=== PATIENT | female | born 1945 | race Caucasian/White ===

== ENCOUNTER 2022-09-02 15:00 | Outpatient (RCR) | payer MEDICARE, SELFPAY | END 2022-09-03 08:23 | disposition home or self-care (01) | PROVIDERS: PCP Family Medicine; Visit Provider Family Medicine | DX: M25.561 Pain in right knee (principal); M79.644 Pain in right finger(s); Z51.89 Encounter for other specified aftercare | CPT/HCPCS: 97035; 97110; 97116; 97140; 97161; 97165; 97535; L3913 ==

== ENCOUNTER 2023-07-23 15:15 | Outpatient (RCR) | payer MEDICARE, SELFPAY | END 2023-10-21 09:18 | disposition home or self-care (01) | PROVIDERS: PCP Family Medicine; Visit Provider Orthopaedic Surgery | DX: M17.11 Unilateral primary osteoarthritis, right knee (principal); M25.561 Pain in right knee; Z51.89 Encounter for other specified aftercare | CPT/HCPCS: 97110; 97140; 97161 ==

== ENCOUNTER 2023-07-31 19:03 | Emergency (ER) | payer MEDICARE, SELFPAY ==
[2023-07-31 19:08] VITALS: BP 168/84; PULSE 76; RESP 16; TEMP 36.2; O2SAT 99; BMI 20.4
--- NOTE | 2023-07-31 19:35 | ED.GENADULT ---
HPI - General Adult General Chief complaint: Abdominal Pain Stated complaint: abdominal pain, high bp Time Seen by Provider: 07/31/23 19:05 Source: patient Mode of arrival: ambulatory Limitations: no limitations History of Present Illness HPI narrative: 77-year-old female presenting today with 2 concerns. 1. She had an episode of abdominal pain in the right upper quadrant that lasted a few hours and is now completely resolved. Patient does state that she has a history of gallstones and this has happened her in the past. She denies any fevers, chills, nausea or vomiting. Last time this occurred she stated that she talked to the surgeon who told her that she could wait for any further surgical management. 2. She is concerned about her blood pressure. States that her blood pressures generally around the 1 teens systolic and when she checked it at home today was in the 170s. She was in pain when this occurred. She denies headaches, blurry vision. She does not take any medication for high blood pressure as she generally has low blood pressures. She does take propanolol for tremor, she did take 10 mg today when her blood pressure was elevated. Related Data Home Medications Medication Instructions Recorded Confirmed alendronate 70 mg tablet 70 mg PO 07/31/23 propranolol 10 mg tablet 5 mg PO BID PRN 07/31/23 07/31/23 Allergies Allergy/AdvReac Type Severity Reaction Status Date / Time penicillin Allergy Uncoded 07/31/23 19:14 Review of Systems Status of ROS: Reports: 10 or more systems reviewed and unremarkable except as noted in History and below Exam Narrative: Exam Narrative: Well-nourished well-developed patient in no acute distress. Alert and oriented. Answers questions appropriately. Mood and affect are appropriate. Thoughts are goal oriented and rational. No tangential or magical thinking noted. Patient speaks in full sentences without needing to catch her breath. Patient is not in any discomfort. HEENT: Normocephalic atraumatic. Pupils are equally round reactive to light. Extraocular muscles are intact. Conjunctivae are moist without any icterus noted. Skin: Well perfused without any obvious rashes. Const: Vital Signs, click to edit/add: Vital Signs - 24 hr 07/31/23 19:08 Temperature 97.2 F L Pulse Rate [Right Pulse Oximeter] 76 Respiratory Rate 16 Blood Pressure [Ri ght Upper Arm] 168/84 H Pulse Oximetry 99 Oxygen Delivery Me thod Room Air Course Vital Signs Vital signs: Initial Vital Signs Temperature 97.2 F L 07/31/23 19:08 Temperature Source Temporal Artery Scan 07/31/23 19:08 Pulse Rate 76 07/31/23 19:08 Respiratory Rate 16 07/31/23 19:08 Blood Pressure 168/84 H 07/31/23 19:08 Blood Pressure Mean 112 H 07/31/23 19:08 Blood Pressure Position Sitting 07/31/23 19:08 Pulse Oximetry 99 07/31/23 19:08 Oxygen Delivery Method Room Air 07/31/23 19:08 Vital Signs Temperature 97.2 F L 07/31/23 19:08 Pulse Rate 76 07/31/23 19:08 Respiratory Rate 16 07/31/23 19:08 Blood Pressure 168/84 H 07/31/23 19:08 Pulse Oximetry 99 07/31/23 19:08 Oxygen Delivery Method Room Air 07/31/23 19:08 Temperature 97.2 F L 07/31/23 19:08 Pulse Rate 76 07/31/23 19:08 Respiratory Rate 16 07/31/23 19:08 Blood Pressure 168/84 H 07/31/23 19:08 Pulse Oximetry 99 07/31/23 19:08 Oxygen Delivery Method Room Air 07/31/23 19:08 Medical Decision Making MDM Narrative Medical decision making narrative: 77-year-old female with abdominal pain now resolved. History of gallstones. Recommend she follow up with surgeon once again to discuss surgical management. Elevated blood pressure: Continue to monitor at home. Would not recommend any changes to her management at this time. Patient is reassured. Recommend she follow up with her primary care provider. Discharge Plan Discharge Clinical Impression: Elevated blood pressure reading, Abdominal pain, Cholelithiasis Patient Disposition: Home, Self-Care Condition: Stable Additional Instructions: Recommend you periodically check your blood pressure at home, few times per week is sufficient. If blood pressure continues to be elevated, you should follow-up with your primary care provider. I also recommend that you follow-up with your general surgeon to discuss your abdominal discomfort and if any surgical management is warranted at this time. Prescriptions: No Action alendronate 70 mg tablet 70 mg PO propranolol 10 mg tablet 5 mg PO BID PRN Follow Up/Referrals: Jeri Bergman MD [Primary Care Provider] - Stand Alone Forms: MyHealth Info Instructions
[2023-07-31 19:37] LABS: Appearance Urine Clear (Clear); Bilirubin Urine Negative (Negative); Blood Urine Negative (Negative); Color Urine Yellow (Yellow); Glucose Urine Negative (Negative); Ketones Urine Negative (Negative); Leukocyte Esterase Urine Negative (Negative); Nitrite Urine Negative (Negative); Protein Urine Negative (Negative); Specific Gravity Urine 1.015 (1.000-1.030); Urobilinogen Urine 0.2 (0.2-1.0); pH Urine 7.5 (5.0-8.5)
[2023-07-31 19:46] LABS: RBC Urine 0-2 (0-2); WBC Urine 0-2 (0-5)
== END 2023-07-31 19:48 | disposition home or self-care (01) ==
PROVIDERS: Emergency Provider Family Medicine; PCP Family Medicine
DX: K80.20 Calculus of gallbladder without cholecystitis without obstruction (principal); R03.0 Elevated blood-pressure reading, without diagnosis of hypertension
CPT/HCPCS: 81001; 99283

== ENCOUNTER 2023-11-15 16:44 | Emergency (ER) | payer MEDICARE, SELFPAY ==
[2023-11-15 16:48] VITALS: BP 131/75; PULSE 72; RESP 16; TEMP 36.5; O2SAT 98; BMI 19.4
--- NOTE | 2023-11-15 17:09 | XR_ITS ---
Patient: TELLO RUANO Facility:?[facility] Patient ID:?[id number] Site Patient ID:?[id number]. Site :?1945 Study:?XRay-Extremity Left WRIST 3V-11/15/2023 5:18:00 PM Ordering Physician:SAVANNAH Final Report: INDICATION: Injury. TECHNIQUE: Three views left wrist. IMPRESSION: Impacted dorsally angulated fracture of the juxta-articular distal radial metaphysis. Slight ulnar and dorsal displacement of comminuted ulnar styloid fracture. Diffuse osteopenia. No definitive fracture lucency extending into the radiocarpal joint or slightly widened distal radioulnar joint. Carpal alignment is anatomic. H Dictated by Afshin Pearce MD @ 11/15/2023 5:41:09 PM Signed by:?Afshin Pearce MD @11/15/2023 5:41:09 PM (Electronic Signature)
--- NOTE | 2023-11-15 17:17 | ED_ITS ---
HPI - Fall General Chief Complaint: Fall/Minor Trauma Stated Complaint: Juan, L hand injury Time Seen by Provider: 11/15/23 17:02 History of Present Illness HPI Narrative: This 78-year-old female comes in with an injury to her left wrist that occurred prior to arrival. She was at a play and stepped away to the bathroom when she misstepped on a couple steps and fell onto her left outstretched hand. She has a deformity of her left wrist. She does not report any other injury. She st ates that she did bump her head slightly but has no headache and did not have any loss of consciousness. She is able to ambulate normally. Related Data Home Medications Medication Instructions Recorded Confirmed alendronate 70 mg tablet 70 mg PO 07/31/23 propranolol 10 mg tablet 5 mg PO BID PRN 07/31/23 07/31/23 Allergies Allergy/AdvReac Type Severity Reaction Status Date / Time Penicillins AdvReac Severe Anaphylaxis Verified 11/15/23 16:51 Review of Systems Status of ROS: Reports: 10 or more systems reviewed and unremarkable except as noted in History and below Narrative: Constitutional: No fevers, no weight gain or loss. Eyes: No discharge. No vision changes. HENT: No congestion, no sore throat, no ear pain. Cardiovascular: No chest pain, no palpitations. Respiratory: No shortness of breath, no wheezes, no cough. Gastrointestinal: No abdominal pain, no vomiting, no diarrhea. Genitourinary: No dysuria, no hematuria. Musculoskeletal: Left wrist injury as described above. Skin: No rashes, no pruritis. Neurological: No dizziness, weakness, sensory change, speech change. Endo/Heme/Allergies: No bruising or bleeding. No polydipsia. Pysch: no suicidality, no anxiety, no insomnia. All other systems reviewed and are negative. Exam Narrative: Exam Narrative: Constitutional: Well-developed, well-nourished, no acute distress. HEENT: Normocephalic, atraumatic. Neck: Normal range of motion. Nontender. Supple. Heart: Intact distal pulses. Lungs: No chest discomfort. No wheezes, rhonchi, or rales. Abdomen: Nontender. Back: Normal range of motion. Extremities: Left wrist has swelling with some deformity typical of fracture. Skin: Intact. No rash. Warm. No erythema or pallor. Neurologic: No altered sensation. No weakness. Alert and oriented. Psychiatric: No suicidality. No anxiety or depression. No insomnia. Nursing notes and vitals signs are reviewed. Const: Vital Signs, click to edit/add: Vital Signs - 24 hr 11/15/23 16:48 Temperature 97.7 F Pulse Rate [Right Pulse Oximeter] 72 Respiratory Rate 16 Blood Pressure [Ri ght Upper Arm] 131/75 Pulse Oximetry 98 Oxygen Delivery Me thod Room Air Course Vital Signs Vital signs: Initial Vital Signs Temperature 97.7 F 11/15/23 16:48 Temperature Source Temporal Artery Scan 11/15/23 16:48 Pulse Rate 72 11/15/23 16:48 Pulse Rhythm Regular 11/15/23 16:48 Pulse Strength 3+ Normal 11/15/23 16:48 Respiratory Rate 16 11/15/23 16:48 Blood Pressure 131/75 11/15/23 16:48 Blood Pressure Mean 93 11/15/23 16:48 Blood Pressure Position Sitting 11/15/23 16:48 Pulse Oximetry 98 11/15/23 16:48 Oxygen Delivery Method Room Air 11/15/23 16:48 Vital Signs Temperature 97.7 F 11/15/23 16:48 Pulse Rate 72 11/15/23 16:48 Respiratory Rate 16 11/15/23 16:48 Blood Pressure 131/75 11/15/23 16:48 Pulse Oximetry 98 11/15/23 16:48 Oxygen Delivery Method Room Air 11/15/23 16:48 Temperature 97.7 F 11/15/23 16:48 Pulse Rate 72 11/15/23 16:48 Respiratory Rate 16 11/15/23 16:48 Blood Pressure 131/75 11/15/23 16:48 Pulse Oximetry 98 11/15/23 16:48 Oxygen Delivery Method Room Air 11/15/23 16:48 MDM - Fall MDM Narrative Medical decision making narrative: This patient comes in with an injury to her left wrist with an obvious deformity. X-ray imaging does show a fracture of the distal radius and ulna with some angulation. The patient was agreeable to a hematoma block. Using 1% lidocaine without epinephrine I injected about 5 mL into the hematoma of the fracture. This brought great pain relief for her. I was able to move her fracture site without any pain. A sugar-tong splint was placed using Ortho Glass material. Repeat x-ray show improvement of alignment. The patient states that she does have some pain medicine that she can use at home if needed. I advised her to follow-up with orthopedic clinic for ongoing management. Imaging Data xr L Wrist: Radiologist's impression: Impacted dorsally angulated fracture of the juxta-articular distal radial metaphysis. Slight ulnar and dorsal displacement of comminuted ulnar styloid fracture. Diffuse osteopenia. No definitive fracture lucency extending into the radiocarpal joint or slightly widened distal radioulnar joint. Carpal alignment is anatomic. H Discharge Plan Discharge Clinical Impression: Fracture of wrist Patient Disposition: Home, Self-Care Condition: Improved Additional Instructions: Wear splint and sling. Follow-up with orthopedic clinic for ongoing management. Call [phone] for appointment. Return if worsening. Prescriptions: No Action alendronate 70 mg tablet 70 mg PO propranolol 10 mg tablet 5 mg PO BID PRN Follow Up/Referrals: Bree Sanders DO [Primary Care Provider] - Stand Alone Forms: Homecare [facility] Info Instructions
[2023-11-15] MEDS: LIDOCAINE 1 % PF 30 ML INJECTION (17:30)
--- NOTE | 2023-11-15 18:03 | XR_ITS ---
Patient: TELLO RUANO Facility:?[facility] Patient ID:?[id number] Site Patient ID:?[id number]. Site :?1945 Study:?XRay-Extremity Left WRIST 3V-11/15/2023 6:13:56 PM Ordering Physician:SAVANNAH Final Report: Indication: Post splinting Technique: Three views of the left wrist Comparison: Same day wrist radiographs Findings/impression : Overlying splint limits evaluation of the osseous structures and soft tissues. There is improved alignment of the distal radial and ulnar styloid process fractures, now in near anatomic alignment following splinting. Dictated by Eric Go MD @ 11/15/2023 6:36:43 PM Signed by:?Eric Go MD @11/15/2023 6:36:43 PM (Electronic Signature)
== END 2023-11-15 18:27 | disposition home or self-care (01) ==
PROVIDERS: Emergency Provider Emergency Medicine Emergency Medical Services; PCP Family Medicine
DX: S52.615A Nondisplaced fracture of left ulna styloid process, initial encounter for closed fracture (principal); W10.9XXA Fall (on) (from) unspecified stairs and steps, initial encounter
CPT/HCPCS: 25605; 73110; 99283; 99284; J2001

== ENCOUNTER 2023-11-19 08:29 | Day surgery (SDC) | payer MEDICARE, SELFPAY ==
[2023-11-19] VITALS (8 sets, daily range): BP systolic 105–156; BP diastolic 60–79; PULSE 58–586; RESP 14–16; TEMP 36.4–36.7; O2SAT 93–99; BMI 20.5
[2023-11-19] MEDS: LACTATED RINGERS 1000 ML 1,000 ML 100 ML IV (09:00)
[2023-11-19] MEDS: SODIUM CHLORIDE 0.9 % (FLUSH) 10 ML SYRINGE IVF (09:00)
[2023-11-19] MEDS: fentaNYL 100 MCG/2 ML inj IVP (10:40)
[2023-11-19] MEDS: MIDAZOLAM HCL 1 MG/ML inj IVP (10:40)
--- NOTE | 2023-11-19 10:45 | XR_ITS ---
Patient: TELLO RUANO Facility:?[facility] Patient ID:?[id number] Site Patient ID:?[id number]. Site :?1945 Study:?XRay-Extremity Left WRIST 2 VIEWS-11/19/2023 12:25:37 PM Ordering Physician:MARIE Final Report: INDICATION: Left wrist fracture ORIF TECHNIQUE: Distal left radius fracture ORIF performed by Dr. Sanchez. AP and lateral C-arm spot images were obtained. Fluoroscopy time was 41 seconds. COMPARISON: 11/15/2023 FINDINGS: C-arm fluoroscopy for distal left radius fracture ORIF. Fracture fragments in good alignment and hardware intact. IMPRESSION: C-arm fluoroscopy for distal left radius fracture ORIF. Dictated by Monroe Winters MD @ 11/20/2023 10:22:19 AM Signed by:?Monroe Winters MD @11/20/2023 10:22:19 AM (Electronic Signature)
--- NOTE | 2023-11-19 10:50 | SUR.PREOP ---
TIME?OUT:?1040 PT/RN/MDA?VERIFICATION?OF?SURGICAL?SITE,?PROCEDURE,?AND?CONSENT OBTAINED?PRIOR?TO?INVASIVE?PROCEDURE.
--- NOTE | 2023-11-19 11:18 | W.PM.NB ---
Nerve Block Nerve Block Time Seen by Provider: 10:45 Date Seen: 11/19/23 Type of block requested by surgeon for post-operative analgesia: axillary Side: left Time out performed: Yes Verification of patient name: Yes Verification of date of : Yes Site marking: site marked Name of person performing procedure: Romeo Continuous monitoring Was continuous monitoring of O2 sat, B/P, student financial services counselor, recorded every 15 minutes?: Yes Procedure Checklist: sterile prep, needles and gloves Ultrasound guided. Images saved: Yes Medications given in 5ml increments after negative aspiration: Ropivicaine %: 0.5 mL: 30 Needle gauge: 22 Patient tolerated procedure well: Yes Additional comments: Needle noted adjacent to nerve Block Charges Block Charge (with Pro Fee): Brachial Plexus Use of Ultrasound Machine for Block: Yes- US Guidance/pain block
[2023-11-19] MEDS: CEFAZOLIN 2 GM INJ IVP (11:24)
--- NOTE | 2023-11-19 12:11 | W.ANESCHARGE ---
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
--- NOTE | 2023-11-19 12:12 | PM.ORPRC ---
Procedure Note Date of procedure: 11/19/23 Procedure: PREOPERATIVE DIAGNOSIS: Angulated 3+ part intra-articular left upper extremity distal radius fracture POSTOPERATIVE DIAGNOSIS: Angulated 3+ part intra-articular left upper extremity distal radius fracture NAME OF OPERATION: Open reduction internal fixation SURGEON: Nishant Snachez MD UNDERCUTTER: PARVEEN Mathew ANESTHESIA: Supraclavicular block plus monitored anesthesia care ESTIMATED BLOOD LOSS: 0 mL COMPLICATIONS: None SPECIMENS: None DRAINS: None PREOPERATIVE ANTIBIOTICS: Ancef 1 g INDICATIONS: The patient is a 78-year-old who fell landing on their upper extremity sustaining the above injury. Given the amount of angulation, reduction and plate fixation were recommended. The risks, benefits and expected outcomes were discussed in detail. These included but were not limited to: Infection, bleeding, injury to blood vessel or nerve, venous thromboembolism. All questions were answered to their satisfaction. Use of an virtual assistant for advertisers was necessary throughout the case for patient positioning and safety, maintenance of the reduction, surgical site dressing and splint application. PROCEDURE: A supraclavicular block was placed by Anesthesia. The patient was placed supine on the operating room table. IV sedation was administered. The reduction was obtained with longitudinal traction and volar force on the distal fragment, held by the virtual assistant for advertisers. The image intensifier was used to confirm an excellent reduction. The extremity was prepped and draped in the usual sterile fashion. The limb was exsanguinated with the Tin bandage. The pneumatic tourniquet was inflated to 250 mm of mercury. A longitudinal incision was made over the flexor carpi radialis. Subcutaneous dissection was taken sharply through the FCR sheath. The FCR was retracted radially. Sharp dissection was carried through the floor of the FCR sheath. The flexor pollicis longus was retracted ulnarly. Sharp dissection was carried through the radial border of the pronator quadratus which was elevated ulnarly, exposing the fracture site. The virtual assistant for advertisers held retractors to expose the fracture. The volar cortex of the fracture is anatomically aligned. We placed a Synthes standard, 3 hole volar locking plate over the volar cortex. It was provisionally held with a K-wire x 2, while the virtual assistant for advertisers held the reduction. Its placement was confirmed with the image intensifier. We placed a cortical screw in the slot. We placed a locking screw in the shaft. We then filled the distal screw holes with smooth locking pegs using the image intensifier to confirm their extra-articular placement. Finally, a 2nd locking screw was placed in the shaft fragment. This construct was imaged in multiple views and was felt to be well placed with an anatomic reduction and well placed implants. The wound was irrigated normal saline. Subcutaneous tissues were reapproximated with a 2-0 Vicryl, skin with a running 3-0 Monocryl in a subcuticular fashion. Glue was used to seal the skin. A dry dressing and short-arm dorsal volar splint was applied. These steps were all completed by the virtual assistant for advertisers. The tourniquet was released, sponge and needle counts were correct x2. The patient tolerated the procedure well, there were no apparent complications. They were taken to the postanesthesia care unit in satisfactory condition. PLAN: The patient will be discharged home. They will work on elevation of the hand and active range of motion of the fingers. They will follow up next week in the office for a wound check with a PA, oblique, lateral and fossa lateral view of the wrist out of the splint prior to being seen in preparation for early active motion with a Velcro wrist brace.
--- NOTE | 2023-11-19 13:13 | W.ANESCHARGE ---
Anesthesia Charges Start Date/Time Anesthesia Start Date: 11/19/23 Anesthesia Start Time: 11:06 Stop Date/Time Anesthesia Stop Date: 11/19/23 Anesthesia Stop Time: 12:40 Summary Extremes of Age - Over 70 or under 1: MDA
== END 2023-11-19 14:02 | disposition home or self-care (01) ==
PROVIDERS: PCP Family Medicine; Visit Provider Orthopaedic Surgery
PROC: (CPT 25575; principal; 2023-11-19 10:45)
DX: S52.572A Other intraarticular fracture of lower end of left radius, initial encounter for closed fracture (principal); G89.18 Other acute postprocedural pain
CPT/HCPCS: 25609; 01810; 01830; 64415; 73110; 76000; 76942; 99100; A4580; C1713; J0690; J2250; J2704; J2795; J3010; J7120

== ENCOUNTER 2024-02-03 12:30 | Outpatient (RCR) | payer MEDICARE, SELFPAY ==
--- NOTE | 2023-11-27 14:31 | OT.OPOE ---
OT Outpatient Ortho Eval OT Outpatient Ortho Eval* Start: 11/26/23 18:07 Freq: Status: Active Protocol: Document 11/27/23 13:28 AMB (Rec: 11/27/23 14:31 AMB [id number]) E-signed By Olga Sheriff, OTR/L, CLT, HOSPICE EXECUTIVE DIRECTOR OT OP Ortho Eval Details Complexity Complexity Low Insurance Information Insurance Information Medicare B,UCARE Outpatient History/Precautions Current Condition/Medical Diagnosis Referring Provider Dr Sanchez Treatment Diagnosis L UE pain, swelling, weakness and limited AROM due to LUE DR genao with ORIF Date of Onset DOI: 11/15/23, DOS: 11/19/23 Medical Conditions Osteoporosis Other Conditions Pt states the only medication she takes is Fosamax for her osteoporosis. Pt does have slightly elevated BP but is not needing medications at this point. Pt was seen by radio script writer in this clinic in June of 2022 for RUE trigger thumb which resolved with conservative treatment. Medical/Functional History Medical History Reviewed Yes Prior Level of Function/Mobility Full, pain-free use of her LUE . Social History Employment Status Retired [employer] Walks a lot Ortho Subjective Subjective Subjective Pt states that on 12/15/23 while attending a play at the [place] [email or web address], she missed a step and fell onto her LUE breaking her left wrist. Pt state she had surgery to fix it on 11/19/23. Pt feels she is doing ok, she lives alone but states she is managing just fine. She is surprised that she really doesn't have a lot of pain. Rates her pain 0-4/10. Pt likes to walk, so she is still using her sling as she walked to the clinic and felt better with it on. Goniometric Comments Goniometric Comments Goniometric Comments 11/27/23 AROM of BUE is WNL throughout with the exception of the LUE forearm, wrist and hand. AROM of the LUE forearm , wrist and hand are as follows: Forearm: Pronation is 45 Supination is 50 Wrist: Flexion is 45 Extension is [address] is 15 AROM of the LUE hand: Composite fist is full Opposition is to tip of SF. OT Objective Data Hand Hand Dominance Right Observations/Posture/Limb Appearance Objective Observations 11/27/23 Incision is covered with surgical glue, incision is visible under glue, no redness, no drainage, no s/s of infection. Mild swelling is appreciated throughout the LUE hand and forearm, bruising is fading. OT Problems Problems Problems Decreased Strength,Decreased Range of Motion,Decreased Dexterity,Pain,Decreased Coordination,Lifting,Gripping, Pinching Other Problems Opening Containers,Dressing, Computer,Fasteners Patient Potential Good Assessment Assessment Assessment Pt is a very pleasant 78yo referred to OT for rehabilitation following LUE DR birgit with resultant pain, swelling, weakness and limited AROM of the LUE hand, wrist and forearm. These deficits impair pt's ability to participate in her hobby of sewing and makes it difficult for her to do any of her ADLs or IADLs that require use of BUE or use of her LUE. Pt will benefit from skilled OT intervention to address impairments and restore full, pain-free use of her LUE. Occupational Therapy Treatment Plan - OP Potential Rehabilitation Potential Good Set Goals Goals Set with Patient Yes Goals Goals 1. Pt will be independent and compliant with HEP in order to resume full, pain-free use of the involved UE. 3 weeks 2. Pt will demonstrate full, pain-free AROM of the involved UE in order to improve ability to grasp and hold. 6 weeks 3. Pt will demonstrate pain- free documentation nurse and pinch strength comparable to the uninvolved side in order to improve functional grasp, hold, reach, and lifting ability needed to complete self-care, leisure tasks, and work activities. 8 weeks. Target Date 02/27/24 Treatment Plan Treatment Plan Evaluation,Edema Control,Joint Mobilization,Manual Therapy, Splinting,Wound Care/Scar Management,Therapeutic Exercise,Therapeutic Activities,Self Care/Home Management,Safe Expert Training ,Education Expected Frequency 1-2x Week Expected Duration 8-10 Weeks Home Program Home Program Home Program Initiated Home Program Specifics Pt was provided with HEP for gentle AROM exs for fingers, wrist and forearm. She was also instructed in non- resisted muscle pumps for edema reduction. Following demo, pt is able to complete exs with minimal cues. Pt was provided with written instructions for home use as well. Recertification Information Recertification Information Initial Certification Date 11/27/23 Recertification Due Date 02/25/24 Reasons to Continue Skilled Therapy Initiated OT today to address pain, weakness and limited AROM in the LUE following DR genao with ORIF. Click To Default 'Per treatment plan' Per treatment plan Continued Plan of Care and Interventions Per treatment plan Provider Signature Shows Agreement With POC & Medical Necessity Physician Comment/Change Comment or Changes Physician NPI Number #
== END 2024-02-03 13:33 | disposition home or self-care (01) ==
PROVIDERS: PCP Family Medicine; Visit Provider Physician Assistant
DX: Z98.890 Other specified postprocedural states (principal); Z51.89 Encounter for other specified aftercare
CPT/HCPCS: 97110; 97140; 97165; X5282

== ENCOUNTER 2024-08-16 13:00 | Outpatient (RCR) | payer MEDICARE, SELFPAY | END 2024-10-24 16:03 | disposition home or self-care (01) | PROVIDERS: PCP Family Medicine; Visit Provider Orthopaedic Surgery | DX: Z96.651 Presence of right artificial knee joint (principal); M25.561 Pain in right knee; M25.661 Stiffness of right knee, not elsewhere classified; R53.1 Weakness; Z51.89 Encounter for other specified aftercare | CPT/HCPCS: 97110; 97112; 97116; 97140; 97161 ==

== ENCOUNTER 2024-09-20 13:45 | Outpatient (RCR) | payer MEDICARE, SELFPAY | END 2024-10-24 16:03 | disposition home or self-care (01) | PROVIDERS: PCP Family Medicine; Visit Provider Family Medicine | DX: M25.562 Pain in left knee (principal); Z74.09 Other reduced mobility; M62.81 Muscle weakness (generalized); Z51.89 Encounter for other specified aftercare | CPT/HCPCS: 97110; 97161 ==

== ENCOUNTER 2025-01-02 23:12 | Emergency (ER) | payer MEDICARE, SELFPAY ==
--- OUTSIDE RECORDS SUMMARY | 2025-01-02 23:15 | XMS_ITS | Clinical Summary ---
Author Organization [facility] Address [address] [place] [address] Care Team Providers Care Extension Service Specialist In Charge Name Role Phone Keith Donald DO Unavailable [phone] Bree Sanders DO Primary Care Provider [phone] Allergies Active Allergy Reactions Criticality Noted Date Comments Unlisted Allergen (Include Detail In Comments) Intolerance-Can't Take 01/25/2008 Anything with mold-blue cheese Penicillins 03/23/2007 anything with mold. Medications Minoxidil (ROGAINE EXTRA STRENGTH) 5 % topical solution Apply to scalp once every other day 1 Bottle 6 Active b complex vitamins (VITAMIN B COMPLEX) capsule Take 1 Capsule by mouth once daily. 0 1 Active magnesium oxide 500 mg cap Take 500 mg by mouth once daily. 2 Active cholecalciferol (Vitamin D) 1,000 unit tablet Take 1 Tablet (1,000 units) by mouth 2 times daily. 0 2 Active melatonin 1 mg tablet Take 1 Tablet (1 mg) by mouth at bedtime. 0 3 Active Coenzyme Q10 (Co Q-10) 10 mg cap Take 1 Capsule (10 mg) by mouth once daily. 4 Active docusate (COLACE) 100 mg capsuleIndicatio ns:Status post total right knee replacement Take 1 Capsule (100 mg) by mouth 2 times daily if needed for Constipation (Hold for loose stools). 100 Capsule 06/10/2024 8:50 AM CONTINGENTS SUPERVISOR 4 Active Pwtrj-4-AWS-EPA- Fish Oil (Fish OiL) 1,000 (120-180) mg cap Take 2 Capsules by mouth once daily. Active zinc gluconate (ZINC ORAL) Take 50 mg by mouth two times daily. Active POTASSIUM CHLORIDE ORAL Take 99 mg by mouth once daily. Active alendronate (FOSAMAX) 70 mg tabletIndication s:Age-related osteoporosis without current pathological fracture Take 1 Tablet (70 mg) by mouth once a week in the morning. Take on empty stomach with full glass of water. Do not lie down for 1 hr. 13 Tablet 2 4 Active estradioL (ESTRACE) 0.01% (0.1 mg/g) vaginal creamIndications :Urinary urgency,Atrophic vaginitis Insert 1 g into the vagina every Thursday, Thursday and Thursday. 42.5 g 3 5 Active benzonatate 100 mg capsuleIndicatio ns:Acute cough Take 1 Capsule (100 mg) by mouth 3 times daily if needed for Cough. 21 Capsule 5 Active clindamycin 300 mg capsuleIndicatio ns:S/P total knee arthroplasty, right 2 tablets one hour prior to cleaning/procedu re 2 Capsule 5 Active Active Problems Problem Noted Date Diagnosed Date Arthritis of right knee 05/01/2023 Chronic pain of right knee 05/01/2023 Tremor 02/09/2023 Primary osteoarthritis of both knees 04/09/2022 Hyperlipidemia 12/12/2020 Osteoporosis 08/19/2017 Overview (07/29/2023): DEXA 2018 - not interested in bisphosphonates due to dental issues 2023: initiated Fosamax (07/29/2023); repeat DEXA in 2025 Postmenopausal atrophic vaginitis 08/19/2017 Anxiety 10/17/2016 Grief 10/17/2016 Cataract 03/01/2013 Adult ADHD 07/14/2009 Encounters Date Type Department Care Team Description 12/01/2024 Telephone [facility] [address] [place] [id number] Monroe Ayala MD Questions 10/18/2024 12:55 PM CDT Office Visit [facility] [address] [facility] [place] [place] [address] Bree Sanders, DO Fever (X1 day ); Cough (X1 week - productive); Sinus Problem (x3-4 days) 10/18/2024 Travel 10/03/2024 12:55 PM CDT Office Visit [facility] [address] [place] [address] Bree Sanders, DO Medicare ANNUAL (subsequent) Visit (78 year old female); Follow Up (Bone density f/u ) 10/03/2024 Travel from Last 3 Months Immunizations Immunization Administration Dates Next Due COVID-19 vaccine (Moderna 100mcg/0.5mL) PF, MDV 11/04/2021 COVID-19 vaccine (sli.do-Bio NTech 30mcg/0.3mL) 12YO+ BIVALENT PF, MDV 04/09/2024 COVID-19 vaccine (Pfizer-Bio NTech 30mcg/0.3mL) PF, MDV 10/06/2020,09/15/2020 Influenza A (H1N1), Inactivated 08/07/2009 Influenza Virus, Unspecified 06/10/2017,05/31/20 17 Influenza, High-dose Inactivated 05/17/2024,100 08/2018,05/24/2018 Influenza, High-dose Quadriv alent Inactivated 08/05/2021 Influenza, IIV3 (Age >=3 years) 08/04/2012 Influenza, Inactivated AIIV4 (Age 65+ Years) Preserv Free 05/19/2023,05/29/2022 Influenza, Inactivated IIV3 (Age 65+ Years) Preserv Free 05/17/2024,04/17/2020 Pneumococcal Poly,23-Valent (Pneumovax) 10/24/2010,09/26/2010(Deferred: Patient Refused - will do after age 65),09/25/2010 Pneumococcal conj 13-Valent (Prevnar 13) 08/19/2017 RSV, Recombinant ADJ Reconst ituted (Arexvy 120MCG/0.5mL) 06/12/2023 Tdap 12/14/2020,09/25/2010 Zoster (Shingrix-RZV, recombinant) 02/18/2019, Zoster (Zostavax-ZVL, live) 09/25/2010 Family History Medical History Relation Name Comments Heart Disease Father rheumatic feve r caused. Cancer-breast Maternal Grandmother Cancer-breast Mother Heart Disease Mother Other Other niece with kelly nile onset diabetes Cancer-colon No Family History Cancer-ovarian No Family History Relation Name Status Comments Father rheumatic fever complications Maternal Grandmother Mother heart problems age 70 Other Social History Tobacco Use Types Packs/Day Years Used Date Smoking Tobacco: Never Smokeless Tobacco: Never Tobacco Cessation:Counseling Given: No Alcohol Use Standard Drinks/Week Comments Yes 0 (1 standard drink = 0.6 oz pur e alcohol) on occ PHQ-2 Answer Date Recorded PHQ-2 TOTAL SCORE 1 10/03/2024 Social Connections Answer Date Recorded Do you often feel lonely or isolated from those around you? 0 09/05/2024 Financial Resource Strain Answer Date R ecorded Difficulty of Paying Living Expenses 3 09/05/2024 Difficulty of Paying Living Expenses Not on file 09/05/2024 Food Insecurity Answer Date Recorded Do you worry your food will run out before you are able to buy more? 1 09/05/2024 Transportation Needs Answer Date Record ed Does lack of transportation keep you from medica l appointments? 1 09/05/2024 Does lack of transportation keep you from work, meetings or getting things that you need? 1 09/05/2024 Housing Stability Answer Date Recorded What is your housing situation today? 1 09/05/2024 Utilities Answer Date Recorded Do you have trouble paying f or utilities (for example, heat, electricity, water, phone)? 1 09/05/2024 Comments No Sex and Gender Information Value Date Recorded Sex Assigned at Female 03/04/2020 8:17 PM CDT Legal Sex Female 5:45 AM CONTINGENTS SUPERVISOR Gender Identity Female 03/04/2020 8:17 PM CDT Sexual Orientation Straight 03/04/2020 8: 17 PM CDT Obstetrics History Para Term AB IAB SAB Ectopic Multiple Livin g Live Births 2 2 2 Date Outcome GA Total Labor Labor/2nd/3rd Weight Sex Type Anes PTL Mary A1 A5 Name Clin Para Para Last Filed Vital Signs Vital Sign Reading Time Taken Comments Blood Pressure 120/79 10/18/2024 1:01 PM CDT Pulse 89 10/18/2024 1:01 PM CDT Temperature 37.2 C (98.9 F) 10/18/2024 1:01 PM CDT Respiratory Rate 14 07/14/2024 2:58 PM CONTINGENTS SUPERVISOR Oxygen Saturation 97% 10/18/2024 1:01 PM CDT Inhaled Oxygen Concentration - - Weight 51.2 kg (112 lb 12.8 oz) 10/18/2024 1:01 PM CDT Height 161.5 cm (5' 3.58) 10/03/2024 1:09 PM CD T Body Mass Index 19.62 10/03/2024 1:09 PM CDT Plan of Treatment Upcoming Encounters Date Type Department Care Team (Late st Contact Info) Description 02/10/2025 11:00 AM CDT Office Visit [facility] [address] [place] [address] Monroe Ayala MD [address] [address] Health Maintenance Due Date Last Done Comments COVID-19 vaccine series ( season) 2025 12/07/2024, 04/09/2024, 04/28/2023, Additional history exists BMI (ht and wt on same day) for age 18+ 10/03/2025 10/03/2024, 07/29/2023, 11/05/2022, Additional history exists Depression screening for age 12+ 10/03/2025 10/03/2024, 09/30/2024, 07/29/2023, Additional history exists Medicare Wellness for age 65+ 10/04/2025 10/03/2024, 07/29/2023, 04/09/2022, Additional history exists Tetanus booster 12/14/2030 12/14/2020, 09/25/2010 Pneumococcal series for age 50+ Completed 08/19/2017, 10/24/2010, 09/25/2010 Zoster (shingles) series for age 50+ Completed 02/18/2019, 11/09/2018, 09/25/2010 Hepatitis C screening for age 18-79 Completed 06/01/2019 Tdap Completed 12/14/2020, 09/25/2010 DEXA/DXA scan for age 65+ Completed 2021, 08/25/2017, 10/24/2010, Additional history exists RSV vaccine for adults or Completed 06/12/2023 Influenza Vaccine Completed 05/17/2024, , 05/19/2023, Additional history exists Hepatitis B series for 19+ Aged Out N o longer eligible based on patient's age to complete this topic Medical Devices Implanted Type Area Gasser Machine Operator Device Identifier Shelf Expiration Date Model / Serial / Lot Cmnt Bone Simplex Hv Us 1 Pack - [id number] Implanted:Qty: 2 on 06/09/2024 by Monroe Ayala MD at [facility] Right: Knee [employer] 12/24/2024 6194-1-001 / / [id number] Peg Fem Triathlon - [id number] Implanted:Qty: 1 on 06/09/2024 by Monroe Ayala MD at [facility] Right: Knee [employer] 04/14/2028 5575-X-000 / / [id number] Baseplate Tib Sz 4 Triathlon Pe - [id number] Implanted:Qty: 1 on 06/09/2024 by Monroe Ayala MD at [facility] Right: Knee [employer] 11/09/2028 [id number] / / [id number] Implnt Patellar [id number] Knee X3 Asymmetric Triathlon - [id number] Implanted:Qty: 1 on 06/09/2024 by Monroe Ayala MD at [facility] Right: Knee [employer] 02/07/2029 [id number]-G-[id number] -[id number] / / [id number] Fem Rt Sz 5 Triathlon Post Stbz Non Pors - [id number] Implanted:Qty: 1 on 06/09/2024 by Monroe Ayala MD at [facility] Right: Knee [employer] 04/05/2028 [id number] / / [id number] Procedures Procedure Name Priority Date/Time Associated Diagnosis Comments XR DXA BONE DENSITY 2 SITES AXIAL Routine 04/10/2022 1:45 PM CDT Osteoporosis, unspecified osteoporosis type, unspecified pathological fracture presence ANTI HCV Routine 06/01/2019 12:06 PM CONTINGENTS SUPERVISOR Need for hepatitis C screening test from Last 3 Months or Most Recently Relevant to Health Maintenance Results * (ABNORMAL) XR DXA BONE DENSITY 2 SITES AXIAL (04/10/2022 1:45 PM CDT) Anatomical Region Laterality Modality Spine, HIPS, HIPL, HIPR Other Impressions 04/14/2022 8:18 AM CDT Osteoporosis. RECOMMENDATIONS: The National Osteoporosis Foundation recommends pharmacologic treatment for patients with T-scores of -2.5 or less, patients with prior history of fragility fractures, or patients with 10-year probability of greater than 3% at hips or greater than 20% of suffering major osteoporotic fractures. Recommend continued optimization of calcium and vitamin D intake through dietary means and/or supplementation and regular exercise. Consider pharmacologic therapy for osteoporosis. Follow-up bone density reading in 2 years if therapy initiated to assess therapeutic efficacy. Marysol Harrison PA-C [facility] 04/14/2022 Narrative 04/14/2022 8:18 AM CDT For Patients: Results are automatically released to your [facility] account once available, in compliance with federal regulations. This means that you may see your results before your provider has had a chance to review them. Please allow 2-3 business days for your provider to comment on the results. XR DXA Bone Mineral Density (BMD) EXAM LOCATION: [facility] [address] [facility] [address] PATIENT NAME: Dee Dee Garcia DATE OF : 1945 EXAM DATE: 04/10/2022 REQUESTING PROVIDER: Jeri Bergman MD GENDER AT : female HEIGHT: 5' 3.7 (04/09/2022) WEIGHT: 118 lb 14.4 oz (04/09/2022) MENOPAUSAL STATUS: Postmenopausal RACE/ETHNICITY: White RISK FACTORS: Height Loss (2 inches or more), Weight < 127 lbs. and White Race CURRENT MEDICATION FOR BONE LOSS: NONE INDICATION: Follow-up of existing osteoporosis COMPARISON DATE(S): 2018 DXA scans are compared to prior studies for a patient only when the two (or more) studies were performed on the same scanner. It is not possible to compare data generated on one scanner to data from another because there are not standards in DXA equipment. This applies even if the two scanners are made by the same flake cutter operator. PROCEDURE: Dual-energy x-ray absorptiometry performed with routine technique. Reporting is completed in the form of a T-score. The T-score represents the standard deviation from peak bone mass based on young healthy adult. A Z-score is used for diagnosis in premenopausal women, and for men under the age of 50. FINDINGS: RESULT LUMBAR SPINE L1 - L2 BMD: 0.821 g/cm2 T-Score: - 2.9 Z-Score: - 0.7 Change from prior in 2018: Increase 7.5%. RESULTS FEMUR Left femoral neck BMD: 0.686 g/cm2 T-Score: - 2.5 Z-Score: - 0.3 Change from prior in 2018: Decrease 2.3%. Right femoral neck BMD: 0.672 g/cm2 T-Score: - 2.6 Z-Score: - 0.4 Change from prior in 2018: Increase 0.9%. Left hip BMD: 0.707 g/cm2 T-Score: - 2.4 Z-Score: - 0.3 Change from prior in 2018: Decrease 3.9%. Right hip BMD: 0.663 g/cm2 T-Score: - 2.7 Z-Score: - 0.7 Change from prior in 2018: Decrease 1.3%. WHO criteria: Normal: T-score at or above -1 SD Osteopenia: T-score between -1.1 and -2.4 SD Osteoporosis: T-score at or below -2.5 SD Jeri Bergman MD DEXA Final Result * ANTI HCV (06/01/2019 12:06 PM CONTINGENTS SUPERVISOR) Pathologist [facility] HEPATITIS C ANTIBODY Non-React rufus Non-React rufus 06/01/2019 10:11 PM CONTINGENTS SUPERVISOR [facility] Comment:Antibodies to HCV no t detected; does not exclude the possibility of exposure to HCV. Blood BLOOD SPECIMEN / Unknown Venipuncture / Unknown 06/01/2019 12:06 PM CONTINGENTS SUPERVISOR 06/01/2019 12:06 PM CONTINGENTS SUPERVISOR Jeri Bergman MD SEND OUTS Final Result [facility] [address] [place] [address], [place] from Last 3 Months or Most Recently Relevant to Health Maintenance Insurance [employer] MEDICARE ADVANTAGE MR HC [employer] MEDICARE PDGM Advance Directives Documents on File Type Date Recorded Patient Line Maintainer Expl anation Healthcare Directive 06/08/2024 024 * Full Code (Latest Code Status on File) Date Activated Date Inactivated Comments 06/13/2024 7:33 AM * Full Code Date Activated Date Inactivated Comments 06/09/2024 6:05 AM 06/09/2024 4:15 PM Question Answer Comments Code Status Discussion: Unable to Assess Preferences, Provider to review later Care Teams Extension Service Specialist In Charge Relationship Specialty Start Date End Date Bree Sanders DO [address] [place] [address] PCP - General Family Practice 09/11/23 Keith Donald DO [address] [facility] [address] [place] [address] Endocrinology 08/14/22
[2025-01-02 23:20] VITALS: BP 185/87; PULSE 74; RESP 16; TEMP 36.7; O2SAT 98; BMI 18.9
--- NOTE | 2025-01-02 23:29 | ED.BACK ---
HPI - Back Pain/Injury General Time Seen by Provider: 23:29 <Romelia Meadows MD - Last Filed: 01/03/25 00:35> Date Seen: 01/02/25 <Romelia Meadows MD - Last Filed: 01/03/25 00:35> Chief Complaint: Back Injury/Pain <Romelia Meadows MD - Last Filed: 01/03/25 00:35> Stated Complaint: back pain, right hand numbness <Romelia Meadows MD - Last Filed: 01/03/25 00:35> Time Seen by Provider: 01/02/25 23:29 <Romelia Meadows MD - Last Filed: 01/03/25 00:35> Source: patient, RN notes reviewed and old records reviewed <Romelia Meadows MD - Last Filed: 01/03/25 00:35> Mode of arrival: ambulatory <Romelia Meadows MD - Last Filed: 01/03/25 00:35> Limitations: no limitations <Romelia Meadows MD - Last Filed: 01/03/25 00:35> History of Present Illness HPI Narrative: Dee Dee is a very pleasant 79-year-old female generally healthy who comes to the emergency room for evaluation regarding shoulder and back pain. Patient notes that this evening after 0900 hours she had the sudden onset of discomfort under her right shoulder blade that was quite intense to about a 6/10. The pain did radiate down her flank. It was not associated with shortness of breath or vomiting. She had no anterior chest or abdominal pain. She notes that this lasted about a 2nd or 2 and then started to dissipate. It happened again and this caused her concern as this is very much unlike her. She notes that she heard that women sometimes have unusual symptoms with heart issues. She does endorse previous history of ?gallbladder attacks?. She notes that maybe the pattern seen to be similar to what she has experienced before but in the past her pain was always in her right flank. Dee Dee has not had any fever chills vomiting nausea dysuria hematuria history of kidney stones. She is pain-free at this time. Did not feel that walking in from the parking lot increased her discomfort. No recent neck pain. Did have a tingling feeling going into the right arm earlier while lying in bed but that has now dissipated. <Romelia Meadows MD - Last Filed: 01/03/25 00:35> Related Data Home Medications: Home Medications ?Medication ?Instructions ?Recorded ?Confirmed alendronate 70 mg tablet 70 mg PO .weekly 07/31/23 01/02/25 propranolol 10 mg tablet 5 mg PO BID PRN 07/31/23 02/10/24 <Romelia Meadows MD - Last Filed: 01/03/25 00:35> Allergies/Adverse Reactions: Allergies Allergy/AdvReac Type Severity Reaction Status Date / Time Penicillins AdvReac Severe Anaphylaxis Verified 01/02/25 23:23 <Romelia Meadows MD - Last Filed: 01/03/25 00:35> Review of Systems Status of ROS: Reports: 6 or more systems reviewed and unremarkable except as noted in History and below <Romelia Meadows MD - Last Filed: 01/03/25 00:35> [facility] Medical History: Medical History Acute right flank pain ?R10.9 - Unspecified abdominal pain (ICD-10) <Romelia Meadows MD - Last Filed: 01/03/25 00:35> Surgical History: Surgical History History of open reduction and internal fixation (ORIF) procedure (11/19/23) ?Z98.890 - Other specified postprocedural states (ICD-10) H/O hernia repair ?Z98.890 - Other specified postprocedural states (ICD-10) ?Z87.19 - Personal history of other diseases of the digestive system (ICD-10) <Romelia Meadows MD - Last Filed: 01/03/25 00:35> Family History: Family History Father Stroke <Romelia Meadows MD - Last Filed: 01/03/25 00:35> Social History: Social History Smoking Status: Never smoker Do you use any of these nicotine containing products: None Second hand tobacco smoke exposure: No How often do you have a drink containing alcohol: monthly or less Alcohol type: wine and hard liquor How many standard drinks containing alcohol do you have on a typical day: 1 or 2 How often do you have six or more drinks on one occasion: Never AUDIT-C Alcohol total score: 1 Non-prescribed substance use: denies use Caffeine: Yes Are you using contraception or practicing any form of control: No <Romelia Meadows MD - Last Filed: 01/03/25 00:35> Exam Narrative: Exam Narrative: Alert and oriented. Very well-spoken woman in no acute distress. Mentation and speech normal. Movement of neck rotation lateral movement without increasing discomfort. Palpation down spine without discomfort. Heart with regular rate and rhythm and lungs are clear. Abdomen soft nontender. Negative Askew sign. Lower extremities without edema. No calf tenderness. <Romelia Meadows MD - Last Filed: 01/03/25 00:35> Const: Vital Signs, click to edit/add: Vital Signs - 24 hr 01/02/25 23:20 Temperature 98.1 F Pulse Rate [Pulse Oximeter] 74 Respiratory Rate 16 Blood Pressure [Ri ght Upper Arm] 185/87 H Pulse Oximetry 98 Oxygen Delivery Me thod Room Air <Romelia Meadows MD - Last Filed: 01/03/25 00:35> Vital Signs, click to edit/add: Vital Signs - 24 hr 01/02/25 23:20 Temperature 98.1 F Pulse Rate [Pulse Oximeter] 74 Respiratory Rate 16 Blood Pressure [Ri ght Upper Arm] 185/87 H Pulse Oximetry 98 Oxygen Delivery Me thod Room Air <Chencho Valles DO - Last Filed: 01/03/25 00:53> Documenting provider has reviewed patient's vital signs: yes <Romelia Meadows MD - Last Filed: 01/03/25 00:35> Course Course ED Course: Differential diagnosis includes but is not limited to angina, pneumothorax, pneumonia, biliary colic, musculoskeletal pain, pleurisy. Will place IV and draw labs to include CBC, comprehensive panel, troponin or, CRP. Will also order chest x-ray and EKG. 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 This case will be signed out to my oncoming colleague Dr. Valles. <Romelia Meadows MD - Last Filed: 01/03/25 00:35> Vital Signs Vital signs: Initial Vital Signs Temperature 98.1 F 01/02/25 23:20 Temperature Source Temporal Artery Scan 01/02/25 23:20 Pulse Rate 74 01/02/25 23:20 Respiratory Rate 16 01/02/25 23:20 Blood Pressure 185/87 H 01/02/25 23:20 Blood Pressure Mean 119 H 01/02/25 23:20 Blood Pressure Position Sitting 01/02/25 23:20 Pulse Oximetry 98 01/02/25 23:20 Oxygen Delivery Method Room Air 01/02/25 23:20 Vital Signs Temperature 98.1 F 01/02/25 23:20 Pulse Rate 74 01/02/25 23:20 Respiratory Rate 16 01/02/25 23:20 Blood Pressure 185/87 H 01/02/25 23:20 Pulse Oximetry 98 01/02/25 23:20 Oxygen Delivery Method Room Air 01/02/25 23:20 Temperature 98.1 F 01/02/25 23:20 Pulse Rate 74 01/02/25 23:20 Respiratory Rate 16 01/02/25 23:20 Blood Pressure 185/87 H 01/02/25 23:20 Pulse Oximetry 98 01/02/25 23:20 Oxygen Delivery Method Room Air 01/02/25 23:20 <Romelia Meadows MD - Last Filed: 01/03/25 00:35> Initial Vital Signs Temperature 98.1 F 01/02/25 23:20 Temperature Source Temporal Artery Scan 01/02/25 23:20 Pulse Rate 74 01/02/25 23:20 Respiratory Rate 16 01/02/25 23:20 Blood Pressure 185/87 H 01/02/25 23:20 Blood Pressure Mean 119 H 01/02/25 23:20 Blood Pressure Position Sitting 01/02/25 23:20 Pulse Oximetry 98 01/02/25 23:20 Oxygen Delivery Method Room Air 01/02/25 23:20 Vital Signs Temperature 98.1 F 01/02/25 23:20 Pulse Rate 74 01/02/25 23:20 Respiratory Rate 16 01/02/25 23:20 Blood Pressure 185/87 H 01/02/25 23:20 Pulse Oximetry 98 01/02/25 23:20 Oxygen Delivery Method Room Air 01/02/25 23:20 Temperature 98.1 F 01/02/25 23:20 Pulse Rate 74 01/02/25 23:20 Respiratory Rate 16 01/02/25 23:20 Blood Pressure 185/87 H 01/02/25 23:20 Pulse Oximetry 98 01/02/25 23:20 Oxygen Delivery Method Room Air 01/02/25 23:20 <Chencho Valles DO - Last Filed: 01/03/25 00:53> MDM - Back Pain/Injury MDM Narrative Medical decision making narrative: Patient is a 79-year-old female signed out to me pending rest for lab work and x-ray. She presents for right-sided back pain. Lab work is returning no concerning abnormalities. EKG shows no concerning abnormalities. Troponin within normal limits. Urinalysis shows no signs of UTI. CBC shows no concerning findings. CMP shows a slightly elevated AST but otherwise nothing concerning. I do not believe this mild elevation in her AST needs further workup here in the emergency department. I did inform her of this finding. I also informed her of the chest x-ray findings showing a possible diaphragmatic hernia on the left side but again I do not believe this is related to her right-sided back pain and I believe she can follow-up outpatient for dedicated CT scan. She is agreeable to this plan. <Chencho Valles DO - Last Filed: 01/03/25 00:53> Medical Records Attestation: I reviewed the patient's medical records. <Romelia Meadows MD - Last Filed: 01/03/25 00:35> Lab Data Labs: Lab Results 01/02/25 01/03/25 Range/Units 23:45 00:00 WBC 5.30 (4.50-11.00) K/uL RBC 4.19 (4.00-5.20) m/uL Hgb 13.0 (12.0-16.0) gm/dL Hct 38.8 (33.0-51.0) % MCV 93 (80-100) fL MCH 31 (26-34) pg MCHC 34 (32-36) gm/dL RDW Coeff of Branden 13.8 (11.5-15.5) % Plt Count 217 (140-440) K/uL Neut % (Auto) 63.6 (42.0-72.0) % Lymph % (Auto) 22.6 (20-44) % [place] % (Auto) 10.6 (0.0-11.0) % Eos % (Auto) 2.8 (0.0-7.0) % Baso % (Auto) 0.2 (0.0-3.0) % Neut # (Auto) 3.37 (1.7-7.0) K/uL Lymph # (Auto) 1.20 (0.90-2.90) K/uL [place] # (Auto) 0.60 (0.00-0.90) K/UL Eos # (Auto) 0.15 (0.00-0.50) K/uL Baso # (Auto) 0.01 (0.00-0.30) K/uL Abs Immat Gran (auto) 0.01 (0.00-0.30) K/uL Imm/Tot Granulo (auto) 0.2 % Sodium 138 (135-149) mmol/L Potassium 4.0 (3.6-5.1) mmol/L Chloride 101 (96-114) mmol/L Carbon Dioxide 30 (20-32) mmol/L Anion Gap 7 (7-15) mEq/L BUN 19 (7-30) mg/dL Creatinine 0.6 (0.5-1.5) mg/dL Estimated Creat Clear 35.93 Estimated GFR 91 ml/min Glucose 84 (60-115) mg/dL Calcium 9.7 (8.4-10.6) mg/dL Total Bilirubin 0.6 (0.1-1.5) mg/dL AST 52 H (12-35) U/L ALT 26 (4-35) U/L Alkaline Phosphatase 69 (40-150) U/L C-Reactive Protein < 0.5 L (0.5-1.0) mg/dL Total Protein 7.6 (6.0-8.3) g/dL Albumin 4.5 (3.3-5.0) g/dL Urine Color Yellow (Yellow) Urine Appearance Clear (Clear) Urine pH 7.0 (5.0-8.5) Ur Specific [place] 1.010 (1.000-1.030) Urine Protein Negative (Negative) Urine Glucose (UA) Negative (Negative) Urine Ketones Negative (Negative) Urine Blood Negative (Negative) Urine Nitrite Negative (Negative) Urine Bilirubin Negative (Negative) Urine Urobilinogen 0.2 (0.2-1.0) Ur Leukocyte Esterase Negative (Negative) Urine RBC 0-2 (0-2) Urine WBC 0-2 (0-5) Ur Squamous Epith Cells Few (None-Few) Urine Bacteria None (None) POC Troponin I 0.00 L (0.01-0.04) ng/ml <Romelia Meadows MD - Last Filed: 01/03/25 00:35> Lab Results 01/02/25 01/03/25 Range/Units 23:45 00:00 WBC 5.30 (4.50-11.00) K/uL RBC 4.19 (4.00-5.20) m/uL Hgb 13.0 (12.0-16.0) gm/dL Hct 38.8 (33.0-51.0) % MCV 93 (80-100) fL MCH 31 (26-34) pg MCHC 34 (32-36) gm/dL RDW Coeff of [place] 13.8 (11.5-15.5) % Plt Count 217 (140-440) K/uL Neut % (Auto) 63.6 (42.0-72.0) % Lymph % (Auto) 22.6 (20-44) % [place] % (Auto) 10.6 (0.0-11.0) % Eos % (Auto) 2.8 (0.0-7.0) % Baso % (Auto) 0.2 (0.0-3.0) % Neut # (Auto) 3.37 (1.7-7.0) K/uL Lymph # (Auto) 1.20 (0.90-2.90) K/uL [place] # (Auto) 0.60 (0.00-0.90) K/UL Eos # (Auto) 0.15 (0.00-0.50) K/uL Baso # (Auto) 0.01 (0.00-0.30) K/uL Abs Immat Gran (auto) 0.01 (0.00-0.30) K/uL Imm/Tot Granulo (auto) 0.2 % Sodium 138 (135-149) mmol/L Potassium 4.0 (3.6-5.1) mmol/L Chloride 101 (96-114) mmol/L Carbon Dioxide 30 (20-32) mmol/L Anion Gap 7 (7-15) mEq/L BUN 19 (7-30) mg/dL Creatinine 0.6 (0.5-1.5) mg/dL Estimated Creat Clear 35.93 Estimated GFR 91 ml/min Glucose 84 (60-115) mg/dL Calcium 9.7 (8.4-10.6) mg/dL Total Bilirubin 0.6 (0.1-1.5) mg/dL AST 52 H (12-35) U/L ALT 26 (4-35) U/L Alkaline Phosphatase 69 (40-150) U/L C-Reactive Protein < 0.5 L (0.5-1.0) mg/dL Total Protein 7.6 (6.0-8.3) g/dL Albumin 4.5 (3.3-5.0) g/dL Urine Color Yellow (Yellow) Urine Appearance Clear (Clear) Urine pH 7.0 (5.0-8.5) Ur Specific [place] 1.010 (1.000-1.030) Urine Protein Negative (Negative) Urine Glucose (UA) Negative (Negative) Urine Ketones Negative (Negative) Urine Blood Negative (Negative) Urine Nitrite Negative (Negative) Urine Bilirubin Negative (Negative) Urine Urobilinogen 0.2 (0.2-1.0) Ur Leukocyte Esterase Negative (Negative) Urine RBC 0-2 (0-2) Urine WBC 0-2 (0-5) Ur Squamous Epith Cells Few (None-Few) Urine Bacteria None (None) POC Troponin I 0.00 L (0.01-0.04) ng/ml <Chencho Valles DO - Last Filed: 01/03/25 00:53> ECG Data Attestation: I personally reviewed and interpreted this ECG as follows: <Romelia Meadows MD - Last Filed: 01/03/25 00:35> ECG interpretation date: 01/03/25 <Romelia Meadows MD - Last Filed: 01/03/25 00:35> Interpretation: EKG by my read shows sinus rhythm at a rate of 67. Isolated flattening of the T-wave in lead 1. Otherwise no acute ST or T-wave changes. Normal QT and WI intervals. <Romelia Meadows MD - Last Filed: 01/03/25 00:35> Discharge Plan Discharge Clinical Impression: Acute right-sided thoracic back pain <Romelia Meadows MD - Last Filed: 01/03/25 00:35> Patient Disposition: Home, Self-Care <Romelia Meadows MD - Last Filed: 01/03/25 00:35> Condition: Stable <Romelia Meadows MD - Last Filed: 01/03/25 00:35> Instructions: Thoracic Pain (ED) <Romelia Meadows MD - Last Filed: 01/03/25 00:35> Additional Instructions: This back pain is likely a muscle strain. I do recommend taking Tylenol and ibuprofen for your pain. If symptoms worsen or develops any new or concerning symptoms return for re-evaluation. He did have a very mildly elevated AST. I do not believe this needs emergent follow-up but do recommend following up with her primary care provider for that and the possible diaphragmatic hernia seen on your x-ray. They may want to do a dedicated chest CT. <Romelia Meadows MD - Last Filed: 01/03/25 00:35> Prescriptions: No Action alendronate 70 mg tablet 70 mg PO .weekly propranolol 10 mg tablet 5 mg PO BID PRN <Romelia Meadows MD - Last Filed: 01/03/25 00:35> Follow Up/Referrals: Bree Sanders DO [Primary Care Provider, Family Practice] <Romelia Meadows MD - Last Filed: 01/03/25 00:35> Stand Alone Forms: MyHealth Info Instructions <Romelia Meadows MD - Last Filed: 01/03/25 00:35>
[2025-01-02 23:54] LABS: Appearance Urine Clear (Clear); Bilirubin Urine Negative (Negative); Blood Urine Negative (Negative); Color Urine Yellow (Yellow); Glucose Urine Negative (Negative); Ketones Urine Negative (Negative); Leukocyte Esterase Urine Negative (Negative); Nitrite Urine Negative (Negative); Protein Urine Negative (Negative); Urobilinogen Urine 0.2 (0.2-1.0)
[2025-01-03 00:01] LABS: RBC Urine 0-2 (0-2); Squamous Epithelial Cell Urine Few (None-Few); WBC Urine 0-2 (0-5)
--- NOTE | 2025-01-03 00:09 | CRLHL7_ITS ---
For Patients: As a result of the Century Cures Act, medical imaging exams and procedure reports are released immediately into your electronic medical record. You may view this report before your referring provider. If you have questions, please contact your health care provider. INDICATION: Upper back chest pain TECHNIQUE: Chest radiograph 1 view COMPARISON: None FINDINGS: Mediastinum: The mediastinum is normal in appearance. The heart silhouette is normal in size and morphology. Lung: Both lungs are unremarkable in appearance. No sign of pleural effusion seen. No pneumothorax is identified. Bone and Soft tissue: Mild levoscoliosis of the lumbar spine is seen. There is a hemispheric low-density along the posterior medial left hemithorax measuring nearly 6 cm. IMPRESSION: 1. There is a hemispheric low-density along the posterior medial left hemithorax measuring nearly 6 cm. This may represent a diaphragmatic hernia and can be confirmed with CT. Dictated by Jason Estrada MD @ 01/03/2025 12:24:48 AM Dictated by: Jason Estrada MD @ 01/03/2025 00:24:52 (Electronically Signed)
[2025-01-03 00:10] LABS: Basophils Absolute Auto 0.01 K/uL (0.00-0.30); Basophils Percent Auto 0.2 % (0.0-3.0); Eosinophils Absolute Auto 0.15 K/uL (0.00-0.50); Eosinophils Percent Auto 2.8 % (0.0-7.0); Hematocrit 38.8 % (33.0-51.0); Immature Granulocytes Abs Auto 0.01 K/uL (0.00-0.30); Immature Granulocytes Pct Auto 0.2 %; Lymphocytes Percent Auto 22.6 % (20-44); Mean Corpuscular HGB Conc 34 gm/dL (32-36); Mean Corpuscular Hemoglobin 31 pg (26-34); Mean Corpuscular Volume 93 fL (80-100); Monocytes Percent Auto 10.6 % (0.0-11.0); Neutrophils Absolute Auto 3.37 K/uL (1.7-7.0); Neutrophils Percent Auto 63.6 % (42.0-72.0); Platelet Count* 217 K/uL (140-440); RDW Coefficient of Variation % 13.8 % (11.5-15.5); Red Blood Count 4.19 m/uL (4.00-5.20)
[2025-01-03 00:14] LABS: Slide Review Reflex No
[2025-01-03 00:27] LABS: Albumin* 4.5 g/dL (3.3-5.0); Chloride* 101 mmol/L (96-114); Sodium* 138 mmol/L (135-149)
[2025-01-03 00:30] LABS: Alanine Aminotransferase* 26 U/L (4-35); Aspartate Amino Transferase* 52 U/L (12-35); Blood Urea Nitrogen* 19 mg/dL (7-30); Creatinine* 0.6 mg/dL (0.5-1.5); Est. Creatinine Clearance* 35.93; Estimated Glomerular Filt Rate 91 ml/min
[2025-01-03 00:31] LABS: Alkaline Phosphatase* 69 U/L (40-150); Anion Gap 7 mEq/L (7-15); Bilirubin Total* 0.6 mg/dL (0.1-1.5); Calcium* 9.7 mg/dL (8.4-10.6); Carbon Dioxide* 30 mmol/L (20-32); Glucose* 84 mg/dL (60-115); Total Protein* 7.6 g/dL (6.0-8.3)
[2025-01-03 00:35] LABS: C Reactive Protein* < 0.5 mg/dL (0.5-1.0)
== END 2025-01-03 01:00 | disposition home or self-care (01) ==
PROVIDERS: Family Medicine; Emergency Provider Student in an Organized Health Care Education/Training Program; PCP Family Medicine
DX: M54.6 Pain in thoracic spine (principal)
CPT/HCPCS: 36415; 71045; 80053; 81001; 84484; 85025; 86140; 93005; 99284; 99285

== ENCOUNTER 2025-03-06 06:16 | Day surgery (SDC) | payer MEDICARE, SELFPAY ==
[2025-03-06] VITALS (15 sets, daily range): BP systolic 140–178; BP diastolic 66–87; PULSE 54–72; RESP 14–16; TEMP 36.2–36.7; O2SAT 91–100; BMI 20.5
[2025-03-06] MEDS: LACTATED RINGERS 1000 ML 1,000 ML 100 ML IV (06:25)
[2025-03-06] MEDS: SODIUM CHLORIDE 0.9 % (FLUSH) 10 ML SYRINGE IVF (07:24)
[2025-03-06] MEDS: ACETAMINOPHEN 325 MG TABLET 650 MG PO (07:31)
--- NOTE | 2025-03-06 07:31 | PM.GSPRC ---
Operative Note Date of procedure: 03/06/25 Pre-op diagnosis: Biliary colic Post-op diagnosis: Same Type of Procedure: Laparoscopic cholecystectomy Indications: The patient is a 79-year-old female who has a history of right flank pain for the past several years. This was provoked with eating. She was found to have gallstones. She initially tried to manage this expectantly, however her symptoms became somewhat more frequent and because of this, after discussion of risks and benefits she elected to proceed with cholecystectomy. Procedure Description: After discussing the risks and benefits of the procedure, the patient signed informed consent.? The operative site was marked and the patient was brought to the operating room and placed on the operating table in supine position.? Care was taken to pad the patient's pressure points.?? The patient was then intubated by anesthesia.?? The operative site was then prepped and draped in the usual sterile fashion.? A time-out was then performed. Entrance to the abdomen was gained via Pope technique below the umbilicus. The patient's prior umbilical incision was incised and dissection was taken down bluntly to the fascia. This was grasped with 2 Saira clamps and divided. The peritoneum was entered. The abdomen was then insufflated and briefly surveyed. There were some wispy omental adhesions to the upper abdomen. The patient's prior right femoral hernia repair appeared intact. I 1st placed 5 mm ports in the left upper quadrant and right upper quadrant under direct vision. I then took down the omental adhesions inferior to the liver. I then placed an additional 5 mm right-sided abdominal port under direct vision. The patient was then placed in reverse Trendelenburg position with the right side up. The gallbladder fundus was grasped and retracted cephalad. The infundibulum was grasped. A combination of hook cautery and blunt dissection was used to carefully dissect out the cystic duct and artery until they could clearly be seen entering the gallbladder without any intervening structures. The gallbladder was dissected off the cystic plate to achieve the critical view. Once this was achieved the cystic duct and artery were each clipped with 2 clips proximally and 1 clip distally on the specimen side and transected with the scissors. The gallbladder was then taken off of the liver bed and removed from the abdomen using an Endo-Catch bag. The gallbladder bed was surveyed for hemostasis which appeared excellent. The ports were removed and the abdomen desufflated. The umbilical port fascia was closed with 0 Vicryl. The skin was closed with absorbable subcuticular suture. Sterile dressings were applied. Instrument sponge and needle counts were correct at the end of the case. The patient was then woken and transferred to the PACU in stable condition. ? The patient tolerated the procedure well. Findings: Wispy omental adhesions noted in the upper abdomen. Anesthesia: GETA Surgeon: Chelsi Flores MD Estimated blood loss (mL): 5 Specimen: Gallbladder Condition: stable Disposition: PACU
--- NOTE | 2025-03-06 07:31 | W.PM.H&PU ---
History & Physical Update History & Physical Update H&P Reviewed and patient assessed: No changes noted
[2025-03-06] MEDS: LACTATED RINGERS 1000 ML 1,000 ML 75 ML IV (07:35)
[2025-03-06] MEDS: CLINDAMYCIN 900 MG/50 ML-D5W IVPB (07:39)
[2025-03-06] MEDS: BUPIVACAINE 0.25% 30 ML 20 ML INJECTION (07:47)
--- NOTE | 2025-03-06 07:57 | SUR.OPER ---
PATIENT QUESTIONS ANSWERED SATISFACTORILY PREOPERATIVELY. PATIENT BROUGHT TO OR #4 PER CART. Patient positioned supine on OR #4 bed. The perioperative team supported arms bilaterally on arm boards. Final approval of positioning by surgeon.
--- NOTE | 2025-03-06 08:30 | P.ANES_ITS ---
Anesthesia Charges Start Date/Time Anesthesia Start Date: 03/06/25 Anesthesia Start Time: 07:25 Stop Date/Time Anesthesia Stop Date: 03/06/25 Anesthesia Stop Time: 08:32 Summary Extremes of Age - Over 70 or under 1: LOCK STITCH CHANNELER Coding CPT Codes CPT Codes: ANESTH SURG UPPER ABDOMEN - 54372 ([id number]) P2 - PATIENT W/MILD SYST DISEASE, QX - LOCK STITCH CHANNELER SVC W/ MD MED DIRECTION, QK - NICKEL OPERATOR 2-4 CNCRNT ANES PROC Additional Codes: Summary - Extremes of Age - Over 70 or under 1: LOCK STITCH CHANNELER ([id number])
--- NOTE | 2025-03-06 08:30 | W.ANESCHARGE ---
Anesthesia Charges Start Date/Time Anesthesia Start Date: 03/06/25 Anesthesia Start Time: 07:25 Stop Date/Time Anesthesia Stop Date: 03/06/25 Anesthesia Stop Time: 08:32 Summary Extremes of Age - Over 70 or under 1: LUMBER CUTTER Coding CPT Codes CPT Codes: ANESTH SURG UPPER ABDOMEN - 54545 ([id number]) P2 - PATIENT W/MILD SYST DISEASE, QX - LUMBER CUTTER SVC W/ MD MED DIRECTION, QK - DRY KILN WORKER 2-4 CNCRNT ANES PROC Additional Codes: Summary - Extremes of Age - Over 70 or under 1: LUMBER CUTTER ([id number])
--- NOTE | 2025-03-06 08:36 | P.ANES_ITS ---
Anesthesia Charges Start Date/Time Anesthesia Start Date: 03/06/25 Anesthesia Start Time: 07:25 Stop Date/Time Anesthesia Stop Date: 03/06/25 Anesthesia Stop Time: 08:32 Summary Extremes of Age - Over 70 or under 1: MDA Coding CPT Codes CPT Codes: ANESTH SURG UPPER ABDOMEN - 21023 ([id number]) P2 - PATIENT W/MILD SYST DISEASE, QK - ADON 2-4 CNCRNT ANES PROC, QX - FLAME ANNEALING MACHINE OPERATOR SVC W/ MD MED DIRECTION Additional Codes: Summary - Extremes of Age - Over 70 or under 1: MDA ([id number])
--- NOTE | 2025-03-06 08:36 | W.ANESCHARGE ---
Anesthesia Charges Start Date/Time Anesthesia Start Date: 03/06/25 Anesthesia Start Time: 07:25 Stop Date/Time Anesthesia Stop Date: 03/06/25 Anesthesia Stop Time: 08:32 Summary Extremes of Age - Over 70 or under 1: MDA Coding CPT Codes CPT Codes: ANESTH SURG UPPER ABDOMEN - 39664 ([id number]) P2 - PATIENT W/MILD SYST DISEASE, QK - INFORMATION ASSURANCE 2-4 CNCRNT ANES PROC, QX - REEL BLADE BENDER FURNACE TENDER SVC W/ MD MED DIRECTION Additional Codes: Summary - Extremes of Age - Over 70 or under 1: MDA ([id number])
== END 2025-03-06 11:30 | disposition home or self-care (01) ==
PROVIDERS: PCP Family Medicine; Visit Provider Surgery
PROC: 0FT44ZZ Resection of Gallbladder, Percutaneous Endoscopic Approach (ICD-10-PCS; CPT 47562; principal; 2025-03-06 07:30)
DX: K80.20 Calculus of gallbladder without cholecystitis without obstruction (principal)
CPT/HCPCS: 47562; 00790; 88304; 99100; A9270; J0330; J0665; J0736; J1100; J1171; J2405; J2704; J2710; J3010; J3490; J7120

== ENCOUNTER 2025-06-04 06:34 | Emergency (ER) | payer MEDICARE, SELFPAY ==
--- OUTSIDE RECORDS SUMMARY | 2025-06-04 06:37 | XMS_ITS | Clinical Summary ---
Author Organization [facility] Address [address] [place] [address] Care Team Providers Care Service Electrician Name Role Phone Keith Donald DO Unavailable [phone] Bree Sanders DO Primary Care Provider [phone] Allergies Active Allergy Reactions Criticality Noted Date [...] loose stools). 100 Capsule 06/10/2024 8:50 AM STRAPPING MACHINE OPERATOR Active Dkuci-0-MHM-EPA- Fish Oil (Fish OiL) 1,000 (120-180) mg cap Take 2 Capsules by mouth once daily. Active zinc gluconate (ZINC ORAL) Take 50 mg by mouth two times daily. Active POTASSIUM CHLORIDE ORAL Take 99 mg by mouth once daily. Active psyllium (METAMUCIL) 0.4 gram capsule Take 1 Capsule by mouth once daily. 5 Active estradioL (ESTRACE) 0.01% (0.1 mg/g) vaginal creamIndications :Urinary urgency,Atrophic vaginitis Insert 1 g into the vagina every Thursday, Thursday and Thursday. 42.5 g 4 5 Active alendronate (FOSAMAX) 70 mg tabletIndication s:Age-related osteoporosis without current pathological fracture TAKE 1 TABLET (70 MG) BY MOUTH ONCE A WEEK IN THE MORNING. TAKE ON EMPTY STOMACH WITH FULL GLASS OF WATER. DO NOT LIE DOWN FOR 1 HR. 13 Tablet 2 5 Active Active Problems Problem Noted Date Diagnosed Date S/P total knee arthroplasty, right 02/10/2025 Arthritis of right knee 05/01/2023 Chronic pain of right knee 05/01/2023 Tremor 02/09/2023 Primary osteoarthritis of both knees 04/09/2022 Hyperlipidemia 12/12/2020 Osteoporosis 08/19/2017 Overview (07/29/2023): DEXA 2017 - not interested in bisphosphonates due to dental issues 2023: initiated Fosamax (07/29/2023); repeat DEXA in 2025 Postmenopausal atrophic vaginitis 08/19/2017 Anxiety 10/17/2016 Grief 10/17/2016 Cataract 03/01/2013 Adult ADHD 07/14/2009 Encounters Date Type Department Care Team Description 05/29/2025 8:05 AM STRAPPING MACHINE OPERATOR Office Visit [facility] [address] [place] [address] Bree Sanders, DO Preoperative Exam (DOS: 06/07/2025 /[facility] /RT EYE CATARACT /KENZIE RAY /FAX NUMBER:[phone] /) 05/29/2025 Travel 03/21/2025 1:15 PM CDT Office Visit [facility] [address] [facility] [address] Chelsi Flores MD Post-op (Laparoscopic cholecystectomy 03/06/25) 03/21/2025 Travel 03/20/2025 Telephone [facility] [address] [place] [address] Chelsi Flores MD Post-op (S/p Laparoscopic cholecystectomy 03/06/25) 03/06/2025 8:00 AM CDT Office Visit [facility] at [facility] [address] [facility] [place] [address] Chelsi Flores MD 03/06/2025 Orders Only [facility] Scanner 1 scan: (1-Ord) [facility], LAPAROSCOPIC CHOLECYSTECTOMY, 03/06/2025 03/06/2025 Lab Requisition [facility] [phone] Chelsi Flores MD 03/06/2025 Travel 03/04/2025 Refill [facility] [address] [place] [address] Bree Sanders DO Refill Request (Alendronate) from Last 3 Months Immunizations Immunization Administration Dates Next Due COVID-19 vaccine (Moderna 100mcg/0.5mL) PF, MDV 11/04/2021 COVID-19 vaccine (Pfizer-Bio NTech 30mcg/0.3mL) 12YO+ BIVALENT PF, MDV 04/09/2024 COVID-19 vaccine (Pfizer-Bio NTech 30mcg/0.3mL) PF, MDV 10/06/2020,09/15/2020 Influenza A (H1N1), Inactivated 08/07/2009 Influenza Virus, Unspecified 06/10/2017,05/31/20 17 Influenza, High-dose Inactivated 05/17/2024,10/0 08/2018,05/24/2018 Influenza, High-dose Quadriv alent Inactivated 08/05/2021 Influenza, IIV3 (Age >=3 years) 08/04/2012 Influenza, Inactivated AIIV4 (Age 65+ Years) Preserv Free 05/19/2023,05/29/2022 Influenza, Inactivated IIV3 (Age 65+ Years) Preserv Free 05/10/2025,05/17/2024,04/17/2020 Pneumococcal Poly,23-Valent (Pneumovax) 10/24/2010,09/26/2010(Deferred: Patient Refused - [...] PHQ-2 Answer Date Recorded PHQ-2 TOTAL SCORE 0 02/22/2025 Social Connections Answer Date Recorded Do you [...] PM CDT Legal Sex Female 5:45 AM STRAPPING MACHINE OPERATOR Gender Identity Female 03/04/2020 8:17 PM CDT Sexual Orientation Straight 03/04/2020 8: 17 PM CDT Obstetrics History Para Term AB IAB SAB Ectopic Multiple Livin g Live Births 2 2 2 Date Outcome GA Total Labor Labor/2nd/3rd Weight Sex Type Anes PTL Mary A1 A5 Name Clin Para Para Last Filed Vital Signs Vital Sign Reading Time Taken Comments Blood Pressure 125/67 05/29/2025 8:13 AM STRAPPING MACHINE OPERATOR Pulse 86 05/29/2025 8:13 AM STRAPPING MACHINE OPERATOR Temperature 37.2 C (98.9 F) 10/18/2024 1:01 PM CDT Respiratory Rate 14 07/14/2024 2:58 PM STRAPPING MACHINE OPERATOR Oxygen Saturation 99% 05/29/2025 8:13 AM STRAPPING MACHINE OPERATOR Inhaled Oxygen Concentration - - Weight 52.1 kg (114 lb 12.8 oz) 05/29/2025 8:13 AM STRAPPING MACHINE OPERATOR Height 161.2 cm (5' 3.47) 05/29/2025 8:13 AM CS T Body Mass Index 20.04 05/29/2025 8:13 AM STRAPPING MACHINE OPERATOR Plan of Treatment Health Maintenance Due Date Last Done Comments Medicare Wellness for age 65+ 10/04/2025 10/03/2024, 07/29/2023, 04/09/2022, Additional history exists Depression screening for age 12+ 02/22/2026 02/22/2025, 10/03/2024, 09/30/2024, Additional history exists BMI (ht and wt on same day) for age 18+ 05/29/2026 05/29/2025, 02/22/2025, 10/03/2024, Additional history exists Tetanus booster 12/14/2030 12/14/2020, 09/25/2010 Pneumococcal series for age 50+ Completed 08/19/2017, 10/24/2010, 09/25/2010 Zoster (shingles) series for age 50+ Completed 02/18/2019, 11/09/2018, 09/25/2010 Hepatitis C screening for age 18-79 Completed 06/01/2019 DEXA/DXA scan for age 65+ Completed 2021, 08/25/2017, 10/24/2010, Additional history exists RSV vaccine for adults or Completed 06/12/2023 Influenza Vaccine Completed 05/10/2025, , 05/17/2024, Additional history exists Hepatitis B series for 19+ Aged Out N o longer eligible based on patient's age to complete this topic Medical Devices Implanted Type Area Senior Wind Turbine Technician Device Identifier Shelf Expiration Date Model / Serial / Lot Cmnt Bone Simplex Hv Us 1 Pack - [id number] Implanted:Qty: 2 on 06/09/2024 by Monroe Ayala MD at [facility] Right: Knee [employer] 12/24/2024 6194-1-001 / / [id number] Peg Fem Triathlon - [id number] Implanted:Qty: 1 on 06/09/2024 by Monroe Ayala MD at [facility] Right: Knee [employer] 04/14/2028 5575-X-000 / / [id number] Baseplate Tib Sz 4 Triathlon Pe - [id number] Implanted:Qty: 1 on 06/09/2024 by Monroe Ayala MD at [facility] Right: Knee [employer] 11/09/2028 5521-B-400 / / [id number] Implnt Patellar [id number] Knee X3 Asymmetric Triathlon - [id number] Implanted:Qty: 1 on 06/09/2024 by Monroe Ayala MD at [facility] Right: Knee [employer] 02/07/2029 5551-G-320 -[id number] / / [id number] Fem Rt Sz 5 Triathlon Post Stbz Non Pors - [id number] Implanted:Qty: 1 on 06/09/2024 by Monroe Ayala MD at [facility] Right: Knee [employer] 04/05/2028 [id number] / / [id number] Procedures Procedure Name Priority Date/Time Associated Diagnosis Comments LAB TRACKING EVENT Routine 03/06/2025 8: 08 AM CDT PATH TISSUE EXAM Routine 03/06/2025 8:08 AM CDT SCAN-OPERATIVE/PRO CEDURE REPORT 03/06/2025 12:00 AM CDT XR DXA BONE DENSITY 2 SITES AXIAL Routine 04/10/2022 1:45 PM CDT Osteoporosis, unspecified osteoporosis type, unspecified pathological fracture presence ANTI HCV Routine 06/01/2019 12:06 PM STRAPPING MACHINE OPERATOR Need for hepatitis C screening test from Last 3 Months or Most Recently Relevant to Health Maintenance Results * LAB TRACKING EVENT (03/06/2025 8:08 AM CDT) Other (Other) Client Collect / Unknown 03/06/2025 8:08 AM CDT 03/06/2025 3:35 PM CDT us Chelsi Flores MD LAB BILL ONLY Final Re sult [facility] [address] [place] [address], * PATH TISSUE EXAM (03/06/2025 8:08 AM CDT) Case Report Pathology Report Case: [id number] Authorizing Provider: Chelsi Flores MD Collected: 03/06/2025 0808 Ordering Location: [facility] Received: 03/06/2025 1702 Pathologist: Jaime Ledbetter MD Specimen: Gallbladder 03/07/2025 5:32 PM CDT [facility] Final Diagnosis A) GALLBLADDER, LAPAROSCOPIC CHOLECYSTECTOMY: 1. Chronic cholecystitis 2. Cholelithiasis 3. Negative for dysplasia and malignancy 03/07/2025 5:32 PM CDT [facility] at 1732 CDT Clinical Information Ms. Garcia is a 79 y.o. who presents with a preoperative diagnosis of biliary colic. 03/07/2025 5:32 PM CDT [facility] Gross Description A) Received in formalin, labeled with the patient's name and gallbladder, is a 7.4 x 3.6 x 3.1 cm intact gallbladder. There are multiple black gallstones identified. There are no mucosal lesions identified. The average wall thickness is 0.2 cm. There is no abnormal wall thickening identified. No cystic duct lymph node is identified. Feed Management Advisor sections are submitted in one cassette. VRS 03/06/2025 03/07/2025 5:32 PM CDT [facility] Microscopic Description The final diagnosis is based on microscopic examination of appropriate sections of all specimens. 03/07/2025 5:32 PM CDT [facility] Additional Information Interpreted at [facility] - [address] [place] [address] 03/07/2025 5:32 PM CDT [facility] Other SPECIMEN FROM GALLBLADDER / Unknown 03/06/2025 8:08 AM CDT 03/06/2025 5:02 PM CDT Chelsi Flores MD PATHOLOGY/CYTOLOGY Final Result Performing Organization Address City/State/[facility] Co de Phone Number [facility] [address] [place] [address], * SCAN-OPERATIVE/PROCEDURE REPORT (03/06/2025 12:00 AM CDT) us Scanner OTHER Final Result * (ABNORMAL) XR DXA BONE DENSITY 2 [...] to assess therapeutic efficacy. Marysol Harrison PA-C [facility] 04/14/2022 Narrative 04/14/2022 8:18 AM CDT For Patients: Results are automatically released to your [facility]) account once available, in compliance with federal regulations. This means that you may see your results before your provider has had a chance to review them. Please allow 2-3 business days for your provider to comment on the results. XR DXA Bone Mineral Density (BMD) EXAM LOCATION: [address] [address] PATIENT NAME: Dee Dee Garcia DATE OF [...] two scanners are made by the same plastic welder. PROCEDURE: Dual-energy x-ray absorptiometry performed with routine [...] Result * ANTI HCV (06/01/2019 12:06 PM STRAPPING MACHINE OPERATOR) Pathologist [facility] HEPATITIS C ANTIBODY Non-React rufus Non-React rufus 06/01/2019 10:11 PM STRAPPING MACHINE OPERATOR [facility] Comment:Antibodies to HCV no t detected; does not exclude the possibility of exposure to HCV. Blood BLOOD SPECIMEN / Unknown Venipuncture / Unknown 06/01/2019 12:06 PM STRAPPING MACHINE OPERATOR 06/01/2019 12:06 PM STRAPPING MACHINE OPERATOR Jeri Bergman MD SEND OUTS Final Result [facility] [address] [place] [address], from Last 3 Months or Most Recently Relevant to Health Maintenance Insurance [facility] MEDICARE ADVANTAGE MR HC UCARE MEDICARE PDGM Advance Directives Documents on File Type Date Recorded Patient Feed Management Advisor Expl anation Healthcare Directive 06/08/2024 024 * Full Code (Latest Code Status on File) Date Activated Date Inactivated Comments 06/13/2024 7:33 AM * Full Code Date Activated Date Inactivated Comments 06/09/2024 6:05 AM 06/09/2024 4:15 PM Question Answer Comments Code Status Discussion: Unable to Assess Preferences, Provider to review later Care Teams Service Electrician Relationship Specialty Start Date End Date Bree Sanders DO [address] [place] [address] PCP - General Family Practice 09/11/23 Keith Donald DO [address] [place] [address] Endocrinology 08/14/22
[2025-06-04 06:39] VITALS: BP 158/79; PULSE 75; RESP 16; TEMP 36.4; O2SAT 98; BMI 19.5
--- NOTE | 2025-06-04 06:57 | ED_ITS ---
HPI - General Adult General Chief complaint: Overdose Stated complaint: accidentally took 3 vicodin instead of ibuprofen Time Seen by Provider: 06/04/25 06:37 Source: patient Mode of arrival: ambulatory Limitations: no limitations History of Present Illness HPI narrative: 79-year-old female presents to the emergency department 2-1/2 hours after she accidentally ingested 3 hydrocodone tablets. She does occasionally use 1 of these at a time for which she believes is post cholecystectomy syndrome type pain. This is her prescription that she has from her own prescribing provider. She had symptoms overnight and got up to take which she thought was 3 ibuprofen and realize that she took 3 hydrocodone. She woke about an hour and a half later feeling a little off. She says that she felt shaky and just a little funny. Those symptoms have now resolved. She is not experiencing any vision changes, stroke-like symptoms, neurological changes or imbalance. There has been no nausea or vomiting. She called the triage line and they advised her to be seen in emergency department. Wonders about what to do now, post ingestion. Denies intentionality Medications reviewed, allergy to penicillin noted. ROS otherwise negative further generalized, GI, respiratory, cardiac, neurological changes. Related Data Home Medications ?Medication ?Instructions ?Recorded ?Confirmed alendronate 70 mg tablet 70 mg PO .weekly 07/31/23 cholecalciferol (vitamin D3) 25 DAILY 03/02/25 mcg (1,000 unit) tablet docusate sodium 100 mg capsule mg PO 03/02/25 magnesium oxide 400 mg (241.3 mg mg DAILY 03/02/25 magnesium) tablet Previous Rx's ?Medication ?Instructions ?Recorded hydrocodone 5 mg-acetaminophen 325 1 tab PO Q6H PRN Pa in #15 tabs 03/06/25 mg tablet Allergies Allergy/AdvReac Type Severity Reaction Status Date / Time Penicillins AdvReac Severe Anaphylaxis Verified 03/06/25 06:34 [facility] Medical History Chronic pain of right knee ?M25.561 - Pain in right knee (ICD-10) ?G89.29 - Other chronic pain (ICD-10) Tremor ?R25.1 - Tremor, unspecified (ICD-10) Hyperlipidemia ?E78.5 - Hyperlipidemia, unspecified (ICD-10) Osteoporosis ?M81.0 - Age-related osteoporosis without current pathological fracture (ICD- 10) Grief ?F43.21 - Adjustment disorder with depressed mood (ICD-10) Cataract ?H26.9 - Unspecified cataract (ICD-10) Adult ADHD ?F90.9 - Attention-deficit hyperactivity disorder, unspecified type (ICD-10) Acute right flank pain ?R10.9 - Unspecified abdominal pain (ICD-10) Surgical History S/P total knee arthroplasty ?Z96.659 - Presence of unspecified artificial knee joint (ICD-10) History of open reduction and internal fixation (ORIF) procedure (11/19/23) ?Z98.890 - Other specified postprocedural states (ICD-10) H/O hernia repair ?Z98.890 - Other specified postprocedural states (ICD-10) ?Z87.19 - Personal history of other diseases of the digestive system (ICD-10) Family History Father Stroke Social History Smoking Status: Never smoker Do you use any of these nicotine containing products: None Second hand tobacco smoke exposure: No How often do you have a drink containing alcohol: monthly or less Alcohol type: wine and hard liquor How many standard drinks containing alcohol do you have on a typical day: 1 or 2 How often do you have six or more drinks on one occasion: Never AUDIT-C Alcohol total score: 1 Non-prescribed substance use: denies use Caffeine: Yes Are you using contraception or practicing any form of control: No Exam Const: Vital Signs, click to edit/add: Vital Signs - 24 hr 06/04/25 06:39 Temperature 97.6 F Pulse Rate [Pulse Oximeter] 75 Respiratory Rate 16 Blood Pressure [Ri ght Upper Arm] 158/79 H Pulse Oximetry 98 Oxygen Delivery Me thod Room Air Documenting provider has reviewed patient's vital signs: yes Common normals: no apparent distress and alert General appearance: cooperative, comfortable and well kempt HENMT: Common normals: head/scalp atraumatic Head and scalp: atraumatic Face and sinus: normal facial exam Eye: Common normals: conjunctivae normal General eye: normal appearance of both eyes Conjunctiva: conjunctiva(e) normal Other: Normal gaze and visual tracking Resp: Common normals: normal respiratory effort and no use of accessory muscles Effort & inspection: able to speak in complete sentences Neuro: Common normals: moves all extremities Sensorium/orientation: alert Speech: speech normal Gait (neuro): normal gait (Observed ambulating into exam room) Psych: Appearance: well kempt Attitude: engaged Activity/motor behavior: appropriate eye contact Attention/concentration: attention grossly intact Memory/cognition: memory grossly intact Insight: insight good Judgement: judgment good Skin: Common normals: no rashes or lesions noted General skin exam: no rashes or lesions noted Course Course ED Course: 39-year-old female with accidental overdose. 2-1/2 hours post ingestion, is now well past peak. No signs of respiratory suppression or dangerous sequelae. I do think this was completely accidental, not demonstrating any intention of self-harm. Patient counseled on medications safety, story narcotic medications and other potentially dangerous substances out of common reach. It is okay for her to use ibuprofen if she still has discomfort. Would discourage any further Tylenol for the next 8 hours. She would be cleared to drive in 4-6 hours. She is having mild side effects, not unexpected and the should resolve in about 4-6 more hours as well. Medically cleared for discharge. No additional workup recommended at this time Vital Signs Vital signs: Initial Vital Signs Temperature 97.6 F 06/04/25 06:39 Temperature Source Temporal Artery Scan 06/04/25 06:39 Pulse Rate 75 06/04/25 06:39 Respiratory Rate 16 06/04/25 06:39 Blood Pressure 158/79 H 06/04/25 06:39 Blood Pressure Mean 105 06/04/25 06:39 Blood Pressure Position Sitting 06/04/25 06:39 Pulse Oximetry 98 06/04/25 06:39 Oxygen Delivery Method Room Air 06/04/25 06:39 Vital Signs Temperature 97.6 F 06/04/25 06:39 Pulse Rate 75 06/04/25 06:39 Respiratory Rate 16 06/04/25 06:39 Blood Pressure 158/79 H 06/04/25 06:39 Pulse Oximetry 98 06/04/25 06:39 Oxygen Delivery Method Room Air 06/04/25 06:39 Temperature 97.6 F 06/04/25 06:39 Pulse Rate 75 06/04/25 06:39 Respiratory Rate 16 06/04/25 06:39 Blood Pressure 158/79 H 06/04/25 06:39 Pulse Oximetry 98 06/04/25 06:39 Oxygen Delivery Method Room Air 06/04/25 06:39 Discharge Plan Discharge Clinical Impression: Medication side effects Patient Disposition: Home w/ Parent or Adult Condition: Stable Instructions: Adverse Drug Reaction (ED) Additional Instructions: As we discussed, the symptoms that your describing are consistent with side effects from hydrocodone. You are not at risk of dangerous overdose at this time. That medication will peak within an hour. The main risk for taking too much opiate would be respiratory suppression. The dose that you ingested would not be high enough to cause that and thankfully now 2 hours past ingestion, you are out of the danger window for severe harm. Your Tylenol dose that you would have ingested with that medication may be higher than recommended. I would recommend that you not use any more Tylenol for the next 8-12 hours but it is okay for you to use ibuprofen for discomfort. Please remember to store any narcotic medications in their original pill bottles and keep them locked secure ly away to help prevent medication errors. Your cleared to eat and drink as normal, perform any scheduled activities for later today. Any dizziness, anxiety, slowed mentation or GI changes should be worn off within about 4-6 more hours. You will be cleared to drive in 4 hours. Activity Level: No Restrictions Discharge Diet: Regular Prescriptions: No Action alendronate 70 mg tablet 70 mg PO .weekly magnesium oxide 400 mg (241.3 mg magnesium) tablet DAILY docusate sodium 100 mg capsule PO cholecalciferol (vitamin D3) 25 mcg (1,000 unit) tablet DAILY hydrocodone-acetaminophen 5-325 mg Tablet 1 tab PO Q6H PRN (Reason: Pain) Qty: 15 0RF Follow Up/Referrals: Bree Sanders DO [Primary Care Provider, Family Practice] Stand Alone Forms: [employer] Info Instructions
== END 2025-06-04 07:07 | disposition home or self-care (01) ==
LOC: ED 07:05
PROVIDERS: Emergency Provider Family Medicine; PCP Family Medicine
DX: T40.2X1A Poisoning by other opioids, accidental (unintentional), initial encounter (principal); Z88.0 Allergy status to penicillin
CPT/HCPCS: 99283